=== PATIENT | female | born 1970 | race Caucasian/White ===

== ENCOUNTER 2017-09-12 09:41 | Outpatient (CLI) | END 2017-09-12 11:50 | disposition home or self-care (01) ==

== ENCOUNTER 2017-09-20 14:22 | Outpatient (CLI) | END 2017-09-20 15:50 | disposition home or self-care (01) ==

== ENCOUNTER 2017-09-22 08:10 | Outpatient (CLI) | END 2017-09-22 11:06 | disposition home or self-care (01) ==

== ENCOUNTER 2017-09-24 10:05 | Inpatient (IN) | END 2017-09-28 14:15 | disposition home or self-care (01) | DRG 765 ==